=== PATIENT | male | born 1950 | race Caucasian/White ===

== ENCOUNTER 2018-02-24 06:40 | Inpatient (IN) | payer OTHER ==
[2018-02-24] MEDS: IPRATROPIUM (NEB) 0.5 MG/2.5 ML AMP INH (07:00)
[2018-02-24] MEDS: ALBUTEROL 0.5% (NEB) 2.5 MG/0.5 ML AMP INH (07:00)
[2018-02-24 07:03] LABS: ADD MAN DIFF? NO
[2018-02-24] MEDS: METHYLPREDNISOLONE 125 MG INJ IV ×4 (07:04→21:29)
[2018-02-24 07:09] LABS: WHITE BLOOD COUNT 14.4 10^3/ul (4.8-10.8)
[2018-02-24 07:09] LABS: ABNORMAL IP MESSAGE 1; BASOPHIL # 0.2 10^3/ul (0.0-0.1); BASOPHILS % 1.2 % (0.0-2.0); EOSINOPHILS # 0.5 10^3/ul (0.0-0.5); EOSINOPHILS % 3.3 % (0.0-7.0); HEMATOCRIT 54.8 % (42.0-52.0); HEMOGLOBIN 18.1 g/dl (14.0-18.0); LYMPHOCYTES # 5.9 10^3/ul (0.8-2.9); LYMPHOCYTES % 40.7 % (15.0-51.0); MEAN CORPUSCULAR HEMOGLOBIN 31.9 pg (29.0-33.0); MEAN CORPUSCULAR VOLUME 96.5 fl (82.0-101.0); MEAN PLATELET VOLUME 10.5 fl (7.4-10.4); MONOCYTE # 1.3 10^3/ul (0.3-0.9); MONOCYTES % 8.8 % (0.0-11.0); NEUTROPHIL # 6.6 10^3/ul (1.6-7.5); NEUTROPHILS % 45.7 % (39.0-77.0); PLATELET COUNT 335 10^3/UL (140-415); POSITIVE DIFF @See below; RED BLOOD COUNT 5.68 10^6/ul (4.70-6.10); RED CELL DISTRIBUTION WIDTH 13.9 % (11.5-14.5)
[2018-02-24 07:51] LABS: ALANINE AMINOTRANSFERASE 23 IU/L (13-69); ALBUMIN 3.9 g/dl (3.3-4.9); ALBUMIN/GLOBULIN RATIO 0.75; ALKALINE PHOSPHATASE 110 IU/L (42-121); ANION GAP 12 (5-13); ASPARTATE AMINO TRANSFERASE 44 IU/L (15-46); BILIRUBIN,INDIRECT 0.9 mg/dl (0-1.1); BILIRUBIN,TOTAL 0.9 mg/dl (0.2-1.3); BLOOD UREA NITROGEN 12 mg/dl (7-20); CALCIUM 9.1 mg/dl (8.4-10.2); CARBON DIOXIDE 23 mmol/L (21-31); CHLORIDE 106 mmol/L (97-110); CREATININE 0.93 mg/dl (0.61-1.24); Estimated GFR > 60 mL/min (>60); GLUCOSE 148 mg/dl (70-220); POTASSIUM 4.4 mmol/L (3.5-5.1); SODIUM 141 mmol/L (135-144); TOTAL PROTEIN 9.1 g/dl (6.1-8.1)
[2018-02-24 08:01] LABS: B-TYPE NATRIURETIC PEPTIDE 437 PG/ML (0-125); TROPONIN-I 0.022 ng/ml (0.000-0.120)
[2018-02-24] MEDS: FUROSEMIDE 20 MG INJ IV (08:39)
[2018-02-24 08:57] LABS: ADD UMIC YES; UR ASCORBIC ACID NEGATIVE (NEGATIVE); UR BACTERIA FEW /HPF (NONE SEEN); UR BILIRUBIN (Dip) NEGATIVE (NEGATIVE); UR BLOOD (Dip) NEGATIVE (NEGATIVE); UR CLARITY CLEAR (CLEAR); UR COLOR YELLOW (YELLOW); UR GLUCOSE (Dip) 1+ mg/dL (NEGATIVE); UR KETONES (Dip) NEGATIVE (NEGATIVE); UR LEUKOCYTE ESTERASE (Dip) NEGATIVE Leu/ul (NEGATIVE); UR NITRITE (Dip) NEGATIVE (NEGATIVE); UR RBC 3 /HPF (0-5); UR SPECIFIC GRAVITY (Dip) 1.015 (1.003-1.030); UR TOTAL PROTEIN (Dip) 3+ mg/dl (NEGATIVE); UR UROBILINOGEN (Dip) NEGATIVE (NEGATIVE); UR WBC 11 /HPF (0-5)
[2018-02-24] MEDS: IOHEXOL 100 ML (09:19)
[2018-02-24] MEDS: SOD CHLORIDE 0.9% 100 ML (09:19)
[2018-02-24] MEDS: AZITHROMYCIN 250 MG TAB PO (09:21)
[2018-02-24] MEDS: CEFTRIAXONE 1 GM/50 ML (PMX) 50 ML IVPB (09:21)
[2018-02-24] MEDS: ASPIRIN 325 MG TAB PO (09:21)
[2018-02-24] MEDS ORDERED: ACETAMINOPHEN 325 MG TAB PO ×2 (10:00)
[2018-02-24] MEDS ORDERED: MAGNESIUM HYDROXIDE 30ML CUP PO (10:00)
[2018-02-24] MEDS ORDERED: NITROGLYCERIN (SL) 0.4 MG TAB SL (10:00)
[2018-02-24] MEDS ORDERED: NACL 0.9% 3 ML SYG IV (10:00)
[2018-02-24] MEDS ORDERED: DOCUSATE SODIUM 100 MG CAP PO (10:00)
[2018-02-24] MEDS ORDERED: ONDANSETRON 4 MG INJ IV ×2 (10:00)
[2018-02-24] MEDS ORDERED: morphine 2 MG INJ IV (10:00)
[2018-02-24] MEDS ORDERED: BISACODYL 10 MG SUPP PR (10:00)
[2018-02-24] MEDS ORDERED: LORAZEPAM 0.5 MG TAB PO (10:00)
[2018-02-24] MEDS: FLUTICASONE/VILANTEROL 200-25 INH DEVICE INH (10:56)
[2018-02-24] MEDS: NICOTINE (21 MG/24 HR) PATCH TRANSDERM (10:56)
[2018-02-24 11:53] LABS: LACTIC ACID 3.4 mmol/L (0.5-2.0)
[2018-02-24 11:54] LABS: TROPONIN-I 0.048 ng/ml (0.000-0.120)
[2018-02-24 12:10] LABS: INR 0.92; PROTIME 12.4 Sec (11.9-14.9)
[2018-02-24 12:11] LABS: PARTIAL THROMBOPLASTIN TIME 29.7 Sec (23.0-35.0)
[2018-02-24] MEDS: DILTIAZEM 30 MG TAB PO ×3 (12:18→20:20)
[2018-02-24] MEDS: INSULIN ASPART [NOVOLOG] 3 ML PEN SC ×3 (12:19→21:00)
[2018-02-24] MEDS: ALBUTEROL/IPRATROPIUM (NEB) 3 ML AMP HHN ×2 (13:22→19:35)
[2018-02-24 14:49] LABS: CREATINE KINASE 86 IU/L (23-200)
[2018-02-24 15:02] LABS: CK INDEX 1.7; CK-MB 1.47 ng/ml (0.0-2.4); TROPONIN-I 0.046 ng/ml (0.000-0.120)
[2018-02-24 18:52] LABS: CREATINE KINASE 89 IU/L (23-200)
[2018-02-24 19:05] LABS: CK INDEX 1.4; CK-MB 1.27 ng/ml (0.0-2.4); TROPONIN-I 0.036 ng/ml (0.000-0.120)
[2018-02-24] MEDS: LISINOPRIL 20 MG TAB PO (21:30)
[2018-02-24] MEDS: ATORVASTATIN 40 MG TAB PO (21:30)
[2018-02-25 05:16] LABS: ADD MAN DIFF? NO
[2018-02-25 05:23] LABS: BASOPHILS % 0.2 % (0.0-2.0); HEMATOCRIT 48.7 % (42.0-52.0); HEMOGLOBIN 16.5 g/dl (14.0-18.0); LYMPHOCYTES # 1.5 10^3/ul (0.8-2.9); LYMPHOCYTES % 9.8 % (15.0-51.0); MEAN CORPUSCULAR HEMOGLOBIN 31.9 pg (29.0-33.0); MEAN CORPUSCULAR HGB CONC 33.9 g/dl (32.0-37.0); MEAN CORPUSCULAR VOLUME 94.2 fl (82.0-101.0); MEAN PLATELET VOLUME 10.3 fl (7.4-10.4); MONOCYTE # 0.5 10^3/ul (0.3-0.9); NEUTROPHIL # 13.1 10^3/ul (1.6-7.5); NEUTROPHILS % 86.3 % (39.0-77.0); PLATELET COUNT 303 10^3/UL (140-415); RED BLOOD COUNT 5.17 10^6/ul (4.70-6.10); RED CELL DISTRIBUTION WIDTH 13.6 % (11.5-14.5)
[2018-02-25 05:23] LABS: WHITE BLOOD COUNT 15.2 10^3/ul (4.8-10.8)
[2018-02-25] MEDS: METHYLPREDNISOLONE 125 MG INJ IV ×3 (05:42→22:00)
[2018-02-25] MEDS: PANTOPRAZOLE (EC) 40 MG TAB PO (05:42)
[2018-02-25 05:49] LABS: LACTIC ACID 4.4 mmol/L (0.5-2.0)
[2018-02-25 06:27] LABS: ALBUMIN 3.7 g/dl (3.3-4.9); ALBUMIN/GLOBULIN RATIO 0.86; ALKALINE PHOSPHATASE 70 IU/L (42-121); ANION GAP 13 (5-13); ASPARTATE AMINO TRANSFERASE 41 IU/L (15-46); BILIRUBIN,INDIRECT 1.3 mg/dl (0-1.1); BILIRUBIN,TOTAL 1.3 mg/dl (0.2-1.3); BLOOD UREA NITROGEN 19 mg/dl (7-20); CALCIUM 9.8 mg/dl (8.4-10.2); CARBON DIOXIDE 19 mmol/L (21-31); CHLORIDE 106 mmol/L (97-110); CREATININE 0.93 mg/dl (0.61-1.24); Estimated GFR > 60 mL/min (>60); GLUCOSE 191 mg/dl (70-220); MAGNESIUM 1.9 mg/dl (1.7-2.5); POTASSIUM 4.9 mmol/L (3.5-5.1); SODIUM 138 mmol/L (135-144)
[2018-02-25 06:30] LABS: ALANINE AMINOTRANSFERASE 11 IU/L (13-69)
[2018-02-25 06:40] LABS: CHOL/HDL RATIO 6.5 RATIO; HDL CHOLESTEROL 42 mg/dl (30-78); LDL CHOLESTEROL,CALCULATED 200 mg/dl; TRIGLYCERIDES 163 mg/dl (0-149)
[2018-02-25 06:40] LABS: CHOLESTEROL 275 mg/dl (100-200)
[2018-02-25] MEDS: INSULIN ASPART [NOVOLOG] 3 ML PEN SC ×4 (08:08→20:43)
[2018-02-25] MEDS: ALBUTEROL/IPRATROPIUM (NEB) 3 ML AMP HHN ×2 (08:26→14:02)
[2018-02-25] MEDS ORDERED: AZITHROMYCIN 500MG/NS (PMX) 250 ML IVPB (09:00)
[2018-02-25] MEDS ORDERED: LISINOPRIL 20 MG TAB PO (09:00)
[2018-02-25] MEDS: FLUTICASONE/VILANTEROL 200-25 INH DEVICE INH (09:25)
[2018-02-25] MEDS: ASPIRIN (EC) 81 MG TAB PO (09:26)
[2018-02-25] MEDS: AZITHROMYCIN 250 MG TAB PO (09:26)
[2018-02-25] MEDS: LISINOPRIL 20 MG TAB PO ×2 (09:26→20:41)
[2018-02-25] MEDS: DILTIAZEM 30 MG TAB PO ×4 (09:26→20:40)
[2018-02-25] MEDS: CEFTRIAXONE 1 GM/50 ML (PMX) 50 ML IVPB (09:43)
[2018-02-25] MEDS: ENOXAPARIN 40 MG/0.4 ML SYG SC (09:50)
[2018-02-25 10:05] LABS: LACTIC ACID 5.6 mmol/L (0.5-2.0)
[2018-02-25] MEDS ORDERED: IPRATROPIUM (NEB) 0.5 MG/2.5 ML AMP HHN (10:30)
[2018-02-25] MEDS: SOD CHLORIDE 0.9% 1,000 ML IV ×2 (10:49→19:37)
[2018-02-25] MEDS: NICOTINE (21 MG/24 HR) PATCH TRANSDERM (12:01)
[2018-02-25] MEDS: hydrALAzine 20 MG INJ IV (12:11)
[2018-02-25 15:28] LABS: LACTIC ACID 5.3 mmol/L (0.5-2.0)
[2018-02-25 16:18] LABS: AADO2 Arterial 32.3 mmHg (7.0-24.0); Allen Test ACCEPTAB; Arterial Base Excess -1.3 mmol/L (-3.0-3); Arterial Blood Gas Oxygen Sat 95.3 mmHG (95.0-98.0); Arterial COHb 1.2 % (0.0-3.0); Arterial Fraction of Oxyhgb 94.2 % (93.0-99.0); Arterial HCO3 21.9 mmol/L (22.0-26.0); Arterial MetHb 0 % (0.0-1.5); Arterial Total Hemglobin 16.9 g/dl (12.0-18.0); Arterial pCO2 33.2 mmhg (35-45); MODE ROOM AIR; Site Left Radial
[2018-02-25] MEDS ORDERED: GLUCAGON 1 MG INJ IM (16:30)
[2018-02-25] MEDS ORDERED: DEXTROSE 50% 50 ML SYRINGE IV ×2 (16:30)
[2018-02-25] MEDS ORDERED: GLUCOSE GEL 15 GRAM TUBE PO ×2 (16:30)
[2018-02-25] MEDS ORDERED: GLUCOSE GEL 15 GRAM TUBE BUCCAL (16:30)
[2018-02-25] MEDS: ATORVASTATIN 40 MG TAB PO (20:40)
[2018-02-25] MEDS ORDERED: ATORVASTATIN 40 MG TAB PO (21:00)
[2018-02-25] MEDS ORDERED: morphine LIQ (10 MG/5 ML) CUP PO (22:30)
[2018-02-26 05:13] LABS: ADD MAN DIFF? NO
[2018-02-26 05:18] LABS: BASOPHILS % 0.2 % (0.0-2.0); HEMATOCRIT 44.6 % (42.0-52.0); HEMOGLOBIN 14.8 g/dl (14.0-18.0); LYMPHOCYTES # 1.6 10^3/ul (0.8-2.9); LYMPHOCYTES % 7.3 % (15.0-51.0); MEAN CORPUSCULAR HEMOGLOBIN 31.4 pg (29.0-33.0); MEAN CORPUSCULAR HGB CONC 33.2 g/dl (32.0-37.0); MEAN CORPUSCULAR VOLUME 94.7 fl (82.0-101.0); MEAN PLATELET VOLUME 10.3 fl (7.4-10.4); MONOCYTE # 1.1 10^3/ul (0.3-0.9); MONOCYTES % 5.1 % (0.0-11.0); NEUTROPHIL # 19.4 10^3/ul (1.6-7.5); NEUTROPHILS % 86.5 % (39.0-77.0); PLATELET COUNT 304 10^3/UL (140-415); RED BLOOD COUNT 4.71 10^6/ul (4.70-6.10); RED CELL DISTRIBUTION WIDTH 13.9 % (11.5-14.5)
[2018-02-26 05:18] LABS: WHITE BLOOD COUNT 22.4 10^3/ul (4.8-10.8)
[2018-02-26 05:48] LABS: ANION GAP 7 (5-13); BLOOD UREA NITROGEN 19 mg/dl (7-20); CALCIUM 8.7 mg/dl (8.4-10.2); CARBON DIOXIDE 23 mmol/L (21-31); CHLORIDE 108 mmol/L (97-110); CREATININE 0.85 mg/dl (0.61-1.24); Estimated GFR > 60 mL/min (>60); GLUCOSE 180 mg/dl (70-220); POTASSIUM 4.3 mmol/L (3.5-5.1); SODIUM 138 mmol/L (135-144)
[2018-02-26 05:59] LABS: LACTIC ACID 2.8 mmol/L (0.5-2.0)
[2018-02-26] MEDS: SOD CHLORIDE 0.9% 1,000 ML IV ×2 (06:03→10:44)
[2018-02-26] MEDS: METHYLPREDNISOLONE 125 MG INJ IV (06:14)
[2018-02-26] MEDS: PANTOPRAZOLE (EC) 40 MG TAB PO (06:14)
[2018-02-26] MEDS: INSULIN ASPART [NOVOLOG] 3 ML PEN SC ×3 (08:03→17:28)
[2018-02-26] MEDS: LISINOPRIL 20 MG TAB PO (08:42)
[2018-02-26] MEDS: ASPIRIN (EC) 81 MG TAB PO (08:42)
[2018-02-26] MEDS: CEFTRIAXONE 1 GM/50 ML (PMX) 50 ML IVPB (08:43)
[2018-02-26] MEDS: TIOTROPIUM 18 MCG CAPSULE INHA DEV INH (08:43)
[2018-02-26] MEDS: NICOTINE (21 MG/24 HR) PATCH TRANSDERM (08:43)
[2018-02-26] MEDS: ENOXAPARIN 40 MG/0.4 ML SYG SC (08:54)
[2018-02-26] MEDS: AZITHROMYCIN 250 MG TAB PO (09:04)
[2018-02-26] MEDS: DILTIAZEM (CD) 240 MG CAP PO (11:46)
[2018-02-26] MEDS: hydrALAzine 20 MG INJ IV (14:39)
== END 2018-02-26 18:15 | disposition home or self-care (01) | DRG 190 ==
LOC: E/R 06:40 → 6WM 09:43
PROC: 5A09357 Assistance with Respiratory Ventilation, Less than 24 Consecutive Hours, Continuous Positive Airway Pressure (ICD-10-PCS; principal; 2018-02-24)
DX: J44.1 Chronic obstructive pulmonary disease with (acute) exacerbation (principal); J96.01 Acute respiratory failure with hypoxia; J18.9 Pneumonia, unspecified organism; I50.33 Acute on chronic diastolic (congestive) heart failure; E87.2 Acidosis; E78.5 Hyperlipidemia, unspecified; F17.210 Nicotine dependence, cigarettes, uncomplicated; I16.0 Hypertensive urgency; I10 Essential (primary) hypertension; I73.9 Peripheral vascular disease, unspecified; Z86.73 Personal history of transient ischemic attack (TIA), and cerebral infarction without residual deficits
CPT/HCPCS: 36415; 36600; 71045; 71275; 80048; 80053; 80061; 81001; 82550; 82553; 82803; 82962; 83605; 83735; 83880; 84484; 85025; 85610; 85730; 87040; 87086; 93005; 93306; 94640; 94644; 94660; 94664; 96374; 96375; 99285-25